=== PATIENT | male | born 1985 | race Two or more races ===

== ENCOUNTER 2021-03-28 18:28 | Emergency (ER) | payer SELFPAY ==
--- NOTE | 2021-03-28 18:28 | NUR ---
PT OBSERVED IN [facility]BULANCE BAY [facility] IN THE BACK OF AMBULANCE. PT IS YELLING AND SAYING "I FEEL BETTER NOW! I'M GOING TO GO NOW!" PT VERY ERATIC AND REFUSING TO RETURN FOR EVALUATION. PT WALKING THROUGH PARKING LOT AND TOWARDS BERINO. PATIENT LEFT WITHOUT BEING SEEN BY DR. HARO. NO FURTHER CARE PROVIDED FOR PATIENT.
== END 2021-03-28 18:29 | disposition left against medical advice (07) ==
LOC: MED 18:28
DX: F29 Unspecified psychosis not due to a substance or known physiological condition (principal); Z53.21 Procedure and treatment not carried out due to patient leaving prior to being seen by health care provider